=== PATIENT | female | born 1955 | race Caucasian/White ===

== ENCOUNTER 2019-01-09 11:42 | Outpatient (CLI) | payer OTHER ==
--- NOTE | 2019-01-09 12:32 | MMO ---
Bilateral MAMMO Bilat Screen [facility]. CLINICAL HISTORY: Patient is 63 years old and is seen for screening. The patient has no family history of breast cancer. The patient has no personal history of cancer. VIEWS: The views performed were: bilateral craniocaudal with tomosynthesis; bilateral mediolateral oblique with tomosynthesis; and bilateral exaggerated craniocaudal. FILMS COMPARED: The present examination has been compared to prior imaging studies performed at [facility] on 04/16/2009, 06/22/2010, 06/03/2011 and 06/21/2012. MAMMOGRAM FINDINGS: The breasts are heterogeneously dense, which could obscure a lesion on mammography. There are no suspicious masses, suspicious calcifications, or new areas of architectural distortion. IMPRESSION: THERE IS NO MAMMOGRAPHIC EVIDENCE OF MALIGNANCY. A ROUTINE FOLLOW-UP MAMMOGRAM IN 1 YEAR IS RECOMMENDED. THE RESULTS OF THIS EXAM WERE SENT TO THE PATIENT. ACR BI-RADS Category 1 - Negative MAMMOGRAPHY NOTE: 1. A negative mammogram report should not delay a biopsy if a dominant of clinically suspicious mass is present. 2. Approximately 10% to 15% of breast cancers are not detected by mammography. 3. Adenosis and dense breasts may obscure an underlying neoplasm.
== END 2019-01-09 11:43 | disposition home or self-care (01) ==
LOC: BICMAMMO 11:42
PROVIDERS: ATTEND Nurse Practitioner Adult Health
DX: Z12.31 Encounter for screening mammogram for malignant neoplasm of breast (principal)
CPT/HCPCS: 77063; 77067

== ENCOUNTER 2020-08-19 10:20 | Outpatient (CLI) | payer OTHER ==
[~2020-08-19 10:20] MED LIST: Iopamidol 300 61% 100 ML VIAL FS ONE
--- NOTE | 2020-08-19 11:53 | RAD ---
X-RAY IVP WITHOUT TOMOGRAM STANDARD: DATE: 08/19/2020 12:00 AM. INDICATION: History of renal calculi and hematuria. COMPARISON: Noncontrast CT of the abdomen and pelvis dated June 24, 2020. FINDING: The small punctate calcifications seen within the right kidney on the comparison CT examination are n ot well seen on the current sock folder image. The bowel gas pattern is unobstructed. No suspicious calcification is evident. There are mild scattered vascular calcifications. On the immediate image following IV contrast administration there are bilateral symmetric nephrograms . There is symmetric bilateral excretion on the 5 minute image. There is slight prominence of the right renal pelvis with normal size of the right ureter on the excretion images likely related to mil d right UPJ obstruction. No visible filling defect is seen within the segmentally opacified ureters. There is some mild retention of excreted contrast within the right renal collecting systems on the 25 minute image. Mild post void residual seen within both renal collecting systems bilaterally. 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 No focal filling defect is evident involving the right renal collecting system. Transcribed Date/Time: 08/19/2020 12:43 PM
== END 2020-08-19 10:21 | disposition home or self-care (01) ==
LOC: RAD 10:20
PROVIDERS: ATTEND Urology
DX: N20.0 Calculus of kidney (principal); R31.29 Other microscopic hematuria; N13.5 Crossing vessel and stricture of ureter without hydronephrosis; Z72.0 Tobacco use
CPT/HCPCS: 74410; Q9967

== ENCOUNTER 2021-02-19 10:21 | Outpatient (CLI) | payer OTHER | END 2021-02-19 10:22 | disposition home or self-care (01) | LOC: NM 10:21 | PROVIDERS: ATTEND Urology | DX: N20.0 Calculus of kidney (principal); Q62.39 Other obstructive defects of renal pelvis and ureter | CPT/HCPCS: 78708; A4641; A9562 ==